=== PATIENT | female | born 1985 | race Caucasian/White ===

== ENCOUNTER → 2019-12-10 13:32 | Outpatient (BNVA) | payer SELFPAY | PROVIDERS: Family Provider Family Medicine; PCP Family Medicine; Visit Provider Nurse Practitioner Family | DX: O20.9 Hemorrhage in early pregnancy, unspecified (principal) | CPT/HCPCS: 81025; 84702 ==

== ENCOUNTER → 2019-12-14 08:42 | Outpatient (BNVA) | payer SELFPAY | PROVIDERS: Family Provider Family Medicine; PCP Family Medicine; Visit Provider Obstetrics & Gynecology | DX: O20.0 Threatened abortion (principal) | CPT/HCPCS: 84702 ==

== ENCOUNTER 2019-12-19 23:15 | Emergency (ER) | payer SELFPAY ==
[2019-12-19 23:16] VITALS: BP 124/84; PULSE 93; RESP 18; O2SAT 98; BMI 25.0
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
--- NOTE | 2019-12-19 23:18 | ED_ITS ---
HPI - Abdominal Pain General: Chief Complaint: Abdominal Pain Stated Complaint: ABDOMINAL CRAMPING 7 WKS Time Seen by Provider: 12/19/19 23:18 History of Present Illness: HPI narrative: Patient comes in today with complaints of lower abdominal pain. Patient is approximately 7 weeks states her last period was 27 October. Patient denies any vaginal discharge or bleeding. Patient appears well. Patient has had 3 previous pregnancies with live births. Review of Systems General: Reports: 10 or more systems reviewed and unremarkable except in HPI and below GI: Reports: abdominal pain PFSH ED PFSH: Social History (Updated 12/10/19 @ 13:26 by Gretchen Padron LPN) Smoking and tobacco status: current every day smoker Alcohol intake: never Physical Exam Const: COMMON NORMALS: no acute distress and patient oriented x3 GENERAL APPEARANCE: cooperative HENMT: COMMON NORMALS: normocephalic, TM's normal bilaterally and Normal ex ternal nose present HEAD & SCALP: normal to inspection and normocephalic NOSE: Normal external nose present TYMPANIC MEMBRANE: TM's normal bilaterally MOUTH: Normal oral and palatal mucosa present THROAT: posterior oropharynx normal Eye: GENERAL EYE: appearance normal, both eyes and all related structures Neck/C-Spine: COMMON NORMALS: full ROM Lymph: LYMPHATIC: no lymphadenopathy noted Chest: COMMONS NORMALS: normal inspection of the chest Resp: COMMON NORMALS: normal respiratory effort EFFORT & INSPECTION: Yes able to speak in complete sentences Cardio: COMMON NORMALS: regular rate and regular rhythm RATE: regular rate RHYTHM: regular rhythm GI: COMMON NORMALS: non-tender : COMMON NORMALS: Yes no CVA tenderness BLADDER/KIDNEY EXAM: Yes no CVA tenderness Back/Pelvis: COMMON NORMALS: no CVA tenderness and thoracic and lumbar spine normal to inspection Extremity: COMMON NORMALS: normal to inspection Neuro: COMMON NORMALS: patient oriented x3 and moves all extremities Psych: COMMON NORMALS: mental status grossly normal and cooperative Skin: COMMON NORMALS: no rashes or lesions noted GENERAL SKIN EXAM: no rashes or lesions noted Course Vital Signs: Vital signs: Vital Signs Pulse Rate 93 12/19/19 23:16 Respiratory Rate 18 12/19/19 23:16 Blood Pressure 124/95 12/20/19 01:10 Pulse Oximetry 99 12/20/19 01:10 MDM - Abdominal Pain MDM Narrative: Medical decision making narrative: Patient comes in today for complaints of some lower abdominal pain. Patient is about 5 to 6 weeks and states that she was just concerned due to her . Patient appears well. Patient appears in no acute distress. Patient denies any vaginal leakage or discharge. Differential diagnosis includes urinary tract infection, threatened miscarriage, ectopic . Ultrasound of the pelvis noted a intrauterine . Laboratory values were normal except for some mild decrease in potassium. Urinalysis was clear. Reviewed exam with patient with recommendations for treatment and follow-up. Patient reported understanding agreed to plan. Lab Data: Labs: Lab Results 12/19/19 12/19/19 12/19/19 Range/Units 23:30 23:30 23:30 WBC 9.9 (4.0-10.0) 10^3/ uL RBC 3.96 L (4.1-5.3) 10^6/u L Hgb 12.5 (11.5-15.3) g/dL Hct 37.1 (37.0-47.0) % MCV 93.7 (81-99) fL MCH 31.6 (28.0-34.0) pg MCHC 33.7 (30.0-36.0) g/dL RDW 12.0 L (12.1-15.1) % Plt Count 254 (130-400) 10^3/c mm MPV 10.8 H (7.4-10.4) fL Neut % (Auto) 51.4 % Lymph % (Auto) 36.3 % [place] % (Auto) 8.6 % Eos % (Auto) 2.8 % Baso % (Auto) 0.7 % Neut # (Auto) 5.1 (1.8-7.7) 10^3/u L Lymph # (Auto) 3.6 (0.8-4.8) 10^3/u L [place] # (Auto) 0.9 (0.2-0.9) 10^3/u L Eos # (Auto) 0.3 (0.0-0.8) 10^3/u L Baso # (Auto) 0.1 (0.0-0.1) 10^3/u L Nucleated RBC % (a uto) 0 % Nucleated RBCs # 0.0 /100WBC Sodium 139 (136-145) mmol/L Potassium 3.2 L (3.5-5.1) mmol/L Chloride 103 (98-107) mmol/L Carbon Dioxide 24 (22-29) mmol/L Anion Gap 15.2 (5-19) BUN 5 L (6-20) mg/dL Creatinine 0.6 (0.5-0.9) mg/dL GFR Calculation 113.8 (90-130) mL/min Glucose 104 (65-115) mg/dL Calculated Osmolal ity 284 L (285-295) mOsm/k g Calcium 9.4 (8.5-10.5) mg/dL Total Bilirubin 0.2 (0.15-1.2) mg/dL AST 16 (0-32) U/L ALT 8 (0-33) U/L Alkaline Phosphata se 81 (35-105) IU/L Total Protein 6.6 (6.6-8.7) g/dL Albumin 4.3 (3.5-5.2) g/dL Globulin 2.3 (1.3-4.6) g/dL Ser , Sanjay i-Qnt 5.80 mIU/mL Urine Color (Yellow) Urine Appearance (CLEAR) Urine pH (5-7) Ur Specific Gravit y (1.005-1.030) Urine Protein (Negative) Urine Glucose (UA) (Normal) Urine Ketones (Negative) Urine Blood (Negative) Urine Nitrate (Negative) Urine Bilirubin (NEGATIVE) Urine Urobilinogen (Negative) mg/dL Ur Leukocyte Myrtle ase (Negative) Blood Type O Positive Rho(D) Type Positive 12/20/19 Range/Units 00:24 WBC (4.0-10.0) 10^3/ uL RBC (4.1-5.3) 10^6/u L Hgb (11.5-15.3) g/dL Hct (37.0-47.0) % MCV (81-99) fL MCH (28.0-34.0) pg MCHC (30.0-36.0) g/dL RDW (12.1-15.1) % Plt Count (130-400) 10^3/c mm MPV (7.4-10.4) fL Neut % (Auto) % Lymph % (Auto) % [place] % (Auto) % Eos % (Auto) % Baso % (Auto) % Neut # (Auto) (1.8-7.7) 10^3/u L Lymph # (Auto) (0.8-4.8) 10^3/u L [place] # (Auto) (0.2-0.9) 10^3/u L Eos # (Auto) (0.0-0.8) 10^3/u L Baso # (Auto) (0.0-0.1) 10^3/u L Nucleated RBC % (a uto) % Nucleated RBCs # /100WBC Sodium (136-145) mmol/L Potassium (3.5-5.1) mmol/L Chloride (98-107) mmol/L Carbon Dioxide (22-29) mmol/L Anion Gap (5-19) BUN (6-20) mg/dL Creatinine (0.5-0.9) mg/dL GFR Calculation (90-130) mL/min Glucose (65-115) mg/dL Calculated Osmolal ity (285-295) mOsm/k g Calcium (8.5-10.5) mg/dL Total Bilirubin (0.15-1.2) mg/dL AST (0-32) U/L ALT (0-33) U/L Alkaline Phosphata se (35-105) IU/L Total Protein (6.6-8.7) g/dL Albumin (3.5-5.2) g/dL Globulin (1.3-4.6) g/dL Ser , Sanjay i-Qnt mIU/mL Urine Color Yellow (Yellow) Urine Appearance Clear (CLEAR) Urine pH 6.5 (5-7) Ur Specific Gravit y 1.010 (1.005-1.030) Urine Protein Neg (Negative) Urine Glucose (UA) Norm (Normal) Urine Ketones Negative (Negative) Urine Blood Neg (Negative) Urine Nitrate Negative (Negative) Urine Bilirubin Neg (NEGATIVE) Urine Urobilinogen Norm (Negative) mg/dL Ur Leukocyte Myrtle ase Negative (Negative) Blood Type Rho(D) Type Discharge Plan Discharge Patient Disposition: Home, Self-Care Clinical Impression: Normal in first trimester Abdominal pain Qualifiers: Abdominal location: periumbilical Qualified Code(s): R10.33 - Periumbilical pain Condition: Stable Prescriptions: No Action No Known Home Medications RF: 0 Discharge Orders: Discharge Order (Routine); Ordered 12/20/19 Ordered By: Demond Cooper Referrals: Eliecer Belle MD [Primary Care Provider] - Discharge Diet: Usual diet Discharge Activity: Increase activity as tolerated Patient Instructions: Abdominal Pain (ED) Activity Restrictions/Additional Instructions: Drink plenty of fluids. Acetaminophen as needed for pain. Return to the ER for high fever, worsening symptoms, or new concerns. Follow-up with primary care and [facility] for further treatment as needed. Coding Level of Care Code ED Telecommunications Analyst for Chg Fwd Exam Comprehensive
--- NOTE | 2019-12-19 23:45 | PC.NURSE ---
Patient does not want any meds or IV. Just wants to make sure that her baby is Okay.
[2019-12-20 00:07] LABS: Basophils # 0.1 10^3/uL (0.0-0.1); Basophils % 0.7 %; Eosinophils # 0.3 10^3/uL (0.0-0.8); Eosinophils % 2.8 %; Hematocrit 37.1 % (37.0-47.0); Hemoglobin 12.5 g/dL (11.5-15.3); Lymphocytes # 3.6 10^3/uL (0.8-4.8); Lymphocytes % 36.3 %; Mean Corpuscular HGB Conc 33.7 g/dL (30.0-36.0); Mean Corpuscular Hemoglobin 31.6 pg (28.0-34.0); Mean Corpuscular Volume 93.7 fL (81-99); Mean Platelet Volume 10.8 fL (7.4-10.4); Monocytes # 0.9 10^3/uL (0.2-0.9); Monocytes % 8.6 %; Neutrophils # 5.1 10^3/uL (1.8-7.7); Neutrophils % 51.4 %; Nucleated Red Blood Cells % 0 %; Platelet Count 254 10^3/cmm (130-400); Red Blood Count 3.96 10^6/uL (4.1-5.3); White Blood Count 9.9 10^3/uL (4.0-10.0)
[2019-12-20 00:32] LABS: Alanine Aminotransferase 8 U/L (0-33); Albumin Level 4.3 g/dL (3.5-5.2); Alkaline Phosphatase 81 IU/L (35-105); Anion Gap 15.2 (5-19); Aspartate Amino Transferase 16 U/L (0-32); Blood Urea Nitrogen 5 mg/dL (6-20); Calcium 9.4 mg/dL (8.5-10.5); Carbon Dioxide 24 mmol/L (22-29); Chloride 103 mmol/L (98-107); Globulin 2.3 g/dL (1.3-4.6); Glomerular Filtration Rate 113.8 mL/min (90-130); Glucose 104 mg/dL (65-115); Osmolality Calculated 284 mOsm/kg (285-295); Potassium 3.2 mmol/L (3.5-5.1); Sodium 139 mmol/L (136-145); Total Bilirubin 0.2 mg/dL (0.15-1.2); Total Protein 6.6 g/dL (6.6-8.7)
[2019-12-20 01:06] VITALS: BP 124/95; O2SAT 99
[2019-12-20 01:10] VITALS: BP 124/95; O2SAT 99
[2019-12-20 01:14] LABS: Add Urine Microscopic? NO
[2019-12-20 01:18] LABS: Urine Appearance Clear (CLEAR); Urine Color Yellow (Yellow); pH Urine 6.5 (5-7)
[2019-12-20 01:19] LABS: Bilirubin Urine Neg (NEGATIVE); Blood Urine Neg (Negative); Glucose Urine UA Norm (Normal); Ketones Urine Negative (Negative); Leukocyte Esterase Urine Negative (Negative); Nitrate Urine Negative (Negative); Protein Urine Neg (Negative); Urobilinogen Urine Norm (Negative)
== END 2019-12-20 01:27 | disposition home or self-care (01) ==
PROVIDERS: Emergency Provider Nurse Practitioner Family; Family Provider Family Medicine; PCP Family Medicine
DX: O26.891 Other specified pregnancy related conditions, first trimester (principal); R10.33 Periumbilical pain; Z3A.01 Less than 8 weeks gestation of pregnancy; O99.331 Smoking (tobacco) complicating pregnancy, first trimester; F17.210 Nicotine dependence, cigarettes, uncomplicated
CPT/HCPCS: 12345; 76801; 80053; 81003; 84702; 85025; 86900; 99282; 99283

== ENCOUNTER → 2019-12-22 09:39 | Outpatient (BNVA) | payer MEDICAID, SELFPAY | PROVIDERS: Family Provider Family Medicine; PCP Family Medicine; Visit Provider Obstetrics & Gynecology | DX: O03.9 Complete or unspecified spontaneous abortion without complication (principal) | CPT/HCPCS: 84702 ==

== ENCOUNTER 2019-12-28 08:15 | Outpatient (CLI) | payer MEDICAID, SELFPAY ==
--- NOTE | 2019-12-28 08:45 | US_ITS ---
WS: [id number] US OB transvaginal [id number] REASON FOR EXAM: Dropping HCG, suppected miscarriage FINDINGS: Today's exam shows no evidence of intrauterine this was on previous exam of 2027 was noted. There are cystic appearing changes in the left ovary and right ovaries. There is a trace of fluid in the cul-de-sac but no hemorrhagic changes. The cervix measured 3.02 cm was closed. US/US OB transvaginal [id number] IMPRESSION: No evidence of intrauterine Benign appearing cysts of both ovaries.
== END 2019-12-28 08:16 | disposition home or self-care (01) ==
LOC: RAD 08:18
PROVIDERS: PCP Family Medicine; Visit Provider Obstetrics & Gynecology
DX: O20.0 Threatened abortion (principal); N83.202 Unspecified ovarian cyst, left side; N83.201 Unspecified ovarian cyst, right side
CPT/HCPCS: 76817

== ENCOUNTER 2020-08-08 23:57 | Emergency (ER) | payer MEDICAID, SELFPAY ==
[2020-08-09 00:02] VITALS: BP 113/79; PULSE 94; RESP 18; TEMP 36.7; O2SAT 99; BMI 25.7
--- NOTE | 2020-08-09 01:06 | ED_ITS ---
HPI - Abdominal Pain General: Chief Complaint: Abdominal Pain Stated Complaint: back and ab pain Time Seen by Provider: 08/09/20 00:00 Source: patient Mode of arrival: ambulatory Limitations: no limitations History of Present Illness: HPI narrative: 35-year-old female who states she believes she may be . She states her last period was in May and she is had positive test last 2 weeks. She states she had some cramping in her low back or lower abdomen and wants to make sure if she is by ultrasound. She denies any vaginal bleeding or discharge. She rates her pain a 5 and is crampy in nature. She denies any worsening improving factors. She denies any vomiting. Associated Symptoms: Denies chills, dysuria and fever(s) Related Data: Date of Last Menstrual Period: 06/17/20 Review of Systems Const: Denies: fever(s), chills, body aches or change in appetite Eyes: Denies: blurry vision or eye discomfort ENMT: Denies: throat pain or dental pain Card: Denies: chest pain Resp: Denies: dyspnea GI: Reports: abdominal pain : Denies: dysuria Musc: Reports: back pain Skin/Breast: Denies: rash Neuro: Denies: headache(s) Psych: Denies: depression Amilcar/Lymph: Denies: easy bruising All/Imm: Denies: urticaria PFSH ED PFSH: Social History Smoking and tobacco status: current every day smoker Alcohol intake: never Female Reproductive History: Date of last menstrual period: 06/17/20 Physical Exam Const: COMMON NORMALS: no acute distress, patient oriented x3 and healthy appearing HENMT: COMMON NORMALS: normocephalic and atraumatic HEAD & SCALP: normocephalic and atraumatic Eye: COMMON NORMALS: Equal, round and reactive pupils present and EOMs intact bilaterally PUPIL: Yes Equal, round and reactive pupils present Neck/C-Spine: COMMON NORMALS: full ROM and supple Chest: COMMONS NORMALS: normal inspection of the chest and normal palpation of entire chest wall Resp: COMMON NORMALS: normal respiratory effort, No retractions, No use of accessory muscles and clear to auscultation bilaterally AUSCULTATION: clear to auscultation bilaterally Cardio: COMMON NORMALS: regular rate, regular rhythm and No murmurs present (Cardio) RATE: regular rate RHYTHM: regular rhythm GI: COMMON NORMALS: Normal to inspection, nondistended, normoactive bowel sounds present, Soft to palpation, non-tender and no masses PALPATION: Yes Soft to palpation Extremity: COMMON NORMALS: normal to inspection and full ROM Neuro: COMMON NORMALS: patient oriented x3, moves all extremities and no focal motor deficits Psych: COMMON NORMALS: mental status grossly normal, Normal thought process present and cooperative THOUGHT PROCESS: Normal thought process present Skin: COMMON NORMALS: no rashes or lesions noted and no wounds GENERAL SKIN EXAM: no rashes or lesions noted Course Vital Signs: Vital signs: Vital Signs Temperature 98.1 F 08/09/20 00:02 Pulse Rate 94 08/09/20 00:02 Respiratory Rate 18 08/09/20 00:02 Blood Pressure 113/79 08/09/20 00:02 Pulse Oximetry 99 08/09/20 00:02 MDM - Abdominal Pain MDM Narrative: Medical decision making narrative: Patient presents here with abdominal pain affecting . Her exam here is benign blood work is all normal. Patient's ultrasound here shows a subchronic hemorrhage along with an IUP at 5 weeks with a heart rate. She is stable for discharge and is to follow-up with OB and return if worsening. Lab Data: Labs: Lab Results 08/09/20 08/09/20 08/09/20 Range/Units 01:15 01:15 01:20 WBC 9.6 (4.0-10.0) 10^3/ uL RBC 4.47 (4.1-5.3) 10^6/u L Hgb 11.7 (11.5-15.3) g/dL Hct 37.1 (37.0-47.0) % MCV 83.0 (81-99) fL MCH 26.2 L (28.0-34.0) pg MCHC 31.5 (30.0-36.0) g/dL RDW 16.8 H (12.1-15.1) % Plt Count 296 (130-400) 10^3/c mm MPV 10.2 (7.4-10.4) fL Neut % (Auto) 47.6 % Lymph % (Auto) 41.5 % [place] % (Auto) 7.9 % Eos % (Auto) 2.2 % Baso % (Auto) 0.4 % Neut # (Auto) 4.56 (1.8-7.7) 10^3/u L Lymph # (Auto) 4.0 (0.8-4.8) 10^3/u L [place] # (Auto) 0.8 (0.2-0.9) 10^3/u L Eos # (Auto) 0.2 (0.0-0.8) 10^3/u L Baso # (Auto) 0.0 (0.0-0.1) 10^3/u L Nucleated RBC % (a uto) 0 % Nucleated RBCs # 0.0 /100WBC Sodium (136-145) mmol/L Potassium (3.5-5.1) mmol/L Chloride (98-107) mmol/L Carbon Dioxide (22-29) mmol/L Anion Gap (5-19) BUN (6-20) mg/dL Creatinine (0.5-0.9) mg/dL GFR Calculation (90-130) mL/min Glucose (65-115) mg/dL Calculated Osmolal ity (285-295) mOsm/k g Calcium (8.5-10.5) mg/dL Total Bilirubin (0.15-1.2) mg/dL AST (0-32) U/L ALT (0-33) U/L Alkaline Phosphata se (35-105) IU/L Total Protein (6.6-8.7) g/dL Albumin (3.5-5.2) g/dL Globulin (1.3-4.6) g/dL Lipase (13-60) U/L HCG, Qual Positive H (Negative) Ser , Sanjay i-Qnt mIU/mL Urine Color Yellow (Yellow) Urine Appearance Clear (CLEAR) Urine pH 6.0 (5-7) Ur Specific Gravit y 1.010 (1.005-1.030) Urine Protein Neg (Negative) Urine Glucose (UA) Norm (Normal) Urine Ketones Negative (Negative) Urine Blood Neg (Negative) Urine Nitrate Negative (Negative) Urine Bilirubin Neg (Negative) Urine Urobilinogen Norm (Negative) mg/dL Ur Leukocyte Myrtle ase Negative (Negative) 01/12/21 01/12/21 Range/Units 01:20 01:20 WBC (4.0-10.0) 10^3/ uL RBC (4.1-5.3) 10^6/u L Hgb (11.5-15.3) g/dL Hct (37.0-47.0) % MCV (81-99) fL MCH (28.0-34.0) pg MCHC (30.0-36.0) g/dL RDW (12.1-15.1) % Plt Count (130-400) 10^3/c mm MPV (7.4-10.4) fL Neut % (Auto) % Lymph % (Auto) % [place] % (Auto) % Eos % (Auto) % Baso % (Auto) % Neut # (Auto) (1.8-7.7) 10^3/u L Lymph # (Auto) (0.8-4.8) 10^3/u L [place] # (Auto) (0.2-0.9) 10^3/u L Eos # (Auto) (0.0-0.8) 10^3/u L Baso # (Auto) (0.0-0.1) 10^3/u L Nucleated RBC % (a uto) % Nucleated RBCs # /100WBC Sodium 137 (136-145) mmol/L Potassium 3.7 (3.5-5.1) mmol/L Chloride 101 (98-107) mmol/L Carbon Dioxide 25 (22-29) mmol/L Anion Gap 14.7 (5-19) BUN 4 L (6-20) mg/dL Creatinine 0.6 (0.5-0.9) mg/dL GFR Calculation 113.1 (90-130) mL/min Glucose 104 (65-115) mg/dL Calculated Osmolal ity 281 L (285-295) mOsm/k g Calcium 10.0 (8.5-10.5) mg/dL Total Bilirubin 0.2 (0.15-1.2) mg/dL AST 15 (0-32) U/L ALT 9 (0-33) U/L Alkaline Phosphata se 85 (35-105) IU/L Total Protein 7.1 (6.6-8.7) g/dL Albumin 4.5 (3.5-5.2) g/dL Globulin 2.6 (1.3-4.6) g/dL Lipase 31 (13-60) U/L HCG, Qual (Negative) Ser , Sanjay i-Qnt 89271.00 mIU/mL Urine Color (Yellow) Urine Appearance (CLEAR) Urine pH (5-7) Ur Specific Gravit y (1.005-1.030) Urine Protein (Negative) Urine Glucose (UA) (Normal) Urine Ketones (Negative) Urine Blood (Negative) Urine Nitrate (Negative) Urine Bilirubin (Negative) Urine Urobilinogen (Negative) mg/dL Ur Leukocyte Myrtle ase (Negative) Discharge Plan Discharge Patient Disposition: Home Clinical Impression: Abdominal pain affecting Condition: Stable Prescriptions: No Action penicillin V potassium 500 mg tablet 500 mg PO TID Qty: 30 RF: 0 ondansetron HCl [Zofran] 4 mg tablet 4 mg PO Q8H PRN (Reason: nausea and vomiting) Qty: 20 RF: 0 Discharge Orders: Discharge ED (Routine); Ordered 08/09/20 Ordered By: Soraya Bolivar Referrals: Eliecer Belle MD [Primary Care Provider] - Discharge Diet: Advance as tolerated Discharge Activity: Resume usual activity Patient Instructions: (ED), Abdominal Pain (ED) Stand Alone Forms: Work/School Release Coding Level of Care Code ED Material Coordinator for Chg Fwd Exam Comprehensive
[2020-08-09 01:23] LABS: HCG Qualitative Urine. Positive (Negative)
[2020-08-09 01:25] LABS: Basophils % 0.4 %; Eosinophils # 0.2 10^3/uL (0.0-0.8); Eosinophils % 2.2 %; Hematocrit 37.1 % (37.0-47.0); Hemoglobin 11.7 g/dL (11.5-15.3); Lymphocytes % 41.5 %; Mean Corpuscular HGB Conc 31.5 g/dL (30.0-36.0); Mean Corpuscular Hemoglobin 26.2 pg (28.0-34.0); Mean Platelet Volume 10.2 fL (7.4-10.4); Monocytes # 0.8 10^3/uL (0.2-0.9); Monocytes % 7.9 %; Neutrophils # 4.56 10^3/uL (1.8-7.7); Neutrophils % 47.6 %; Nucleated Red Blood Cells % 0 %; Platelet Count 296 10^3/cmm (130-400); Red Blood Count 4.47 10^6/uL (4.1-5.3); Red Cell Distribution Width 16.8 % (12.1-15.1); White Blood Count 9.6 10^3/uL (4.0-10.0)
[2020-08-09 01:38] LABS: Add Urine Microscopic? NO; Bilirubin Urine Neg (Negative); Blood Urine Neg (Negative); Glucose Urine UA Norm (Normal); Ketones Urine Negative (Negative); Leukocyte Esterase Urine Negative (Negative); Nitrate Urine Negative (Negative); Protein Urine Neg (Negative); Urine Appearance Clear (CLEAR); Urine Color Yellow (Yellow); Urobilinogen Urine Norm (Negative)
--- NOTE | 2020-08-09 01:38 | US_ITS ---
WS: [id number] ULTRASOUND EARLY TECHNIQUE: Transabdominal sonography of the pelvis was performed. Followed by transvaginal sonography to better evaluate the uterus and ovaries. CLINICAL INFORMATION: abd pain LMP: 06/28/2020 Beta hCG: Unknown. COMPARISON: None. FINDINGS: UTERUS AND GESTATIONAL SAC Intrauterine gestations: Estimated gestational age: 6w0d Yolk sac: 0.4 cm. [place] rump length (CRL): 0.2 cm. heart motion: 122 BPM. Subchorionic hemorrhage: Present measuring 4.3 x 2.6 cm OVARIES Right ovary: Normal. Left ovary: Incidental small left ovarian cysts. FREE FLUID None. US/US OB >=14 wk fetus w transvag IMPRESSION: 1. Single live intrauterine with prominent subchorionic hemorrhage m easuring 4.3 x 2.6 cm. Recommend short interval follow-up 2. Estimated gestational age; 6w0d. Estimated delivery April 04, 2021 3. No free fluid in the cul-de-sac. 4. Normal adnexa.
[2020-08-09 01:59] LABS: Alanine Aminotransferase 9 U/L (0-33); Albumin Level 4.5 g/dL (3.5-5.2); Alkaline Phosphatase 85 IU/L (35-105); Anion Gap 14.7 (5-19); Aspartate Amino Transferase 15 U/L (0-32); Blood Urea Nitrogen 4 mg/dL (6-20); Carbon Dioxide 25 mmol/L (22-29); Chloride 101 mmol/L (98-107); Globulin 2.6 g/dL (1.3-4.6); Glomerular Filtration Rate 113.1 mL/min (90-130); Glucose 104 mg/dL (65-115); Lipase 31 U/L (13-60); Osmolality Calculated 281 mOsm/kg (285-295); Potassium 3.7 mmol/L (3.5-5.1); Sodium 137 mmol/L (136-145); Total Bilirubin 0.2 mg/dL (0.15-1.2); Total Protein 7.1 g/dL (6.6-8.7)
[2020-08-09 03:00] VITALS: BP 123/78; PULSE 78; RESP 16; O2SAT 98
== END 2020-08-09 03:01 | disposition home or self-care (01) ==
PROVIDERS: Emergency Provider Emergency Medicine; PCP Family Medicine
DX: O26.891 Other specified pregnancy related conditions, first trimester (principal); R10.9 Unspecified abdominal pain; O99.331 Smoking (tobacco) complicating pregnancy, first trimester; F17.210 Nicotine dependence, cigarettes, uncomplicated; Z3A.01 Less than 8 weeks gestation of pregnancy
CPT/HCPCS: 12345; 76805; 76817; 80053; 81003; 81025; 83690; 84702; 85025; 99283

== ENCOUNTER → 2020-08-23 10:54 | Outpatient (BNVA) | payer BC, SELFPAY | PROVIDERS: PCP Family Medicine; Visit Provider Nurse Practitioner Women's Health | DX: O09.521 Supervision of elderly multigravida, first trimester (principal) | CPT/HCPCS: 81000 ==

== ENCOUNTER → 2020-09-22 14:07 | Outpatient (BNVA) | payer BC, MEDICAID, SELFPAY | PROVIDERS: PCP Family Medicine; Visit Provider Obstetrics & Gynecology | DX: O09.521 Supervision of elderly multigravida, first trimester (principal); Z11.3 Encounter for screening for infections with a predominantly sexual mode of transmission; Z3A.00 Weeks of gestation of pregnancy not specified | CPT/HCPCS: 80307; 81000; 85027; 86592; 86762; 86803; 86850; 86900; 87086; 87340; 87491; 87591; 87806 ==

== ENCOUNTER → 2020-11-21 12:45 | Outpatient (BNVA) | payer BC, MEDICAID, SELFPAY | PROVIDERS: PCP Family Medicine; Visit Provider Obstetrics & Gynecology | DX: Z36.89 Encounter for other specified antenatal screening (principal); Z3A.20 20 weeks gestation of pregnancy | CPT/HCPCS: 76805 ==

== ENCOUNTER → 2020-12-01 13:27 | Outpatient (BNVA) | payer BC, MEDICAID, SELFPAY | PROVIDERS: PCP Family Medicine; Visit Provider Obstetrics & Gynecology | DX: Z34.90 Encounter for supervision of normal pregnancy, unspecified, unspecified trimester (principal) | CPT/HCPCS: 81000 ==

== ENCOUNTER 2020-12-16 22:29 | Outpatient (CLI) | payer BC, MEDICAID, SELFPAY ==
[2020-12-16 22:36] VITALS: BP 120/76; PULSE 96
[2020-12-16 22:47] VITALS: BP 119/77; PULSE 93
== END 2020-12-16 22:58 | disposition home or self-care (01) ==
LOC: OPOB 22:30 → OBGYN 22:31
PROVIDERS: PCP Family Medicine; Visit Provider Obstetrics & Gynecology
DX: O26.899 Other specified pregnancy related conditions, unspecified trimester (principal); Z3A.00 Weeks of gestation of pregnancy not specified; M25.472 Effusion, left ankle; M25.471 Effusion, right ankle
CPT/HCPCS: 99211

== ENCOUNTER → 2020-12-22 12:20 | Outpatient (BNVA) | payer BC, MEDICAID, SELFPAY | PROVIDERS: PCP Family Medicine; Visit Provider Obstetrics & Gynecology | DX: Z34.80 Encounter for supervision of other normal pregnancy, unspecified trimester (principal) | CPT/HCPCS: 81000 ==

== ENCOUNTER 2021-01-12 22:11 | Emergency (ER) | payer BC, MEDICAID, SELFPAY ==
--- NOTE | 2021-01-12 22:15 | USCV_ITS ---
KailaJosue nazario Age: 35 Gender: F : 1985 Exam Date: 01/12/2021 23:08 Ordering Phys: Soraya Bolivar MD Technologist: Edgar Ruiz Exam Location: [facility] – [place] Indication: LT LEG SWELLING 8 MONTHS PREG HISTORY: Lower extremity swelling. PROCEDURES: Venous duplex imaging was performed in bilateral lower extremities. The venous duplex Doppler examination of both lower extremities was performed in the standard fashion. The following venous structures were evaluated: common femoral vein, profunda vein, proximal portion of the greater saphenous vein, superficial femoral vein, and the popliteal vein. FINDINGS: Normal 2-D Doppler and augmentation and compressibility throughout the lower extremity venous structures. Additional imaging through the proximal calf veins also reveals no thrombus. Limited evaluation of the greater saphenous vein is patent with no thrombus.. CONCLUSIONS No evidence of right lower extremity DVT. No evidence of left lower extremity DVT. Aldo Oneil MD (Electronically Signed) Final Date: 13 January 2021 13:27 S
[2021-01-12 22:22] VITALS: BP 128/84; PULSE 95; RESP 18; TEMP 36.6; O2SAT 97; BMI 29.1
[2021-01-12 23:23] VITALS: BP 131/92; PULSE 96; RESP 18; O2SAT 98
[2021-01-12 23:24] VITALS: PULSE 96
--- NOTE | 2021-01-12 23:28 | W.ED.EXTPRO ---
HPI - Extremity Problem General: Chief complaint: Extremity Problem,Nontraumatic Stated complaint: Ankles and legs swollen Time Seen by Provider: 01/12/21 22:21 History of Present Illness: HPI Narrative: 35-year-old female comes in today for complaints of lower extremity swelling. Patient is 7 months . Patient today had some increased swelling in the lower extremities although it has been having problems with swelling for the last month. She had some increased pain in her left lower leg and was concerned for a blood clot in the leg. Patient appears well. Patient appears in mild to no pain. No significant redness or pulse deficit is noted in the lower extremity. MD Complaint: extremity pain and extremity swelling Onset (ago): hour(s) (Worse today) Pain Consistency: intermittent Location: lower extremity Quality: aching Relieving factors: medication Exacerbating factors: nothing Associated symptoms: Reports no associated symptoms Review of Systems General: Reports: 10 or more systems reviewed and unremarkable except in HPI and below Musc: Reports: other (Swelling to bilateral lower extremities, worse to the left with pain) PFSH ED PFSH: Medical History No pertinent past medical history neghx: htn,dm,thyroid,dvt/pe,herpes Denies past partner hx of herpes PCP: none Surgical History History of appendectomy ~age 16 S/P laparoscopic cholecystectomy Family History Grandmother , unknown what type and how old at dx Cancer Denies family history of Diabetes Hypertension Stroke Social History (Updated 12/23/20 @ 10:18 by Derek Hernandez MD) Smoking and tobacco status: current every day smoker cigarettes Packs smoked per day: 0.5 [ Other cigarette details: Most 1/2 ppd. Started age 15. ] Alcohol intake: never Female Reproductive History: Date of last menstrual period: 06/17/20 Physical Exam Const: COMMON NORMALS: no acute distress and patient oriented x3 GENERAL APPEARANCE: cooperative HENMT: COMMON NORMALS: normocephalic and Normal external nose present HEAD & SCALP: normal to inspection and normocephalic NOSE: Normal external nose present Eye: GENERAL EYE: appearance normal, both eyes and all related structures Neck/C-Spine: COMMON NORMALS: full ROM Chest: COMMONS NORMALS: normal inspection of the chest Resp: COMMON NORMALS: normal respiratory effort EFFORT & INSPECTION: Yes able to speak in complete sentences Cardio: COMMON NORMALS: regular rate and regular rhythm RATE: regular rate RHYTHM: regular rhythm GI: COMMON NORMALS: non-tender : COMMON NORMALS: Yes no CVA tenderness BLADDER/KIDNEY EXAM: Yes no CVA tenderness Back/Pelvis: COMMON NORMALS: no CVA tenderness and thoracic and lumbar spine normal to inspection Extremity: NARRATIVE EXTREMITY EXAM: Bilateral lower extremity swelling, increased more on the left, no redness, pulses are intact. Neuro: COMMON NORMALS: patient oriented x3 and moves all extremities Psych: COMMON NORMALS: mental status grossly normal and cooperative Skin: COMMON NORMALS: no rashes or lesions noted GENERAL SKIN EXAM: no rashes or lesions noted Course Vital Signs: Vital signs: Vital Signs Temperature 97.9 F 01/12/21 22:22 Pulse Rate 96 01/12/21 23:24 Respiratory Rate 18 01/12/21 23:23 Blood Pressure 131/92 01/12/21 23:23 Pulse Oximetry 98 01/12/21 23:23 MDM - Extremity (Nontraumatic) MDM Narrative: Medical decision making narrative: Patient comes in today for complaints of bilateral lower extremity swelling. Patient has had increased swelling to lower extremities for the last month. Patient is at 7 months . Patient does will continue to work and is up on her feet throughout the day. Patient is also a smoker. On exam swelling is noted in bilateral lower extremities +1 to +2, without any redness or calf pain. Differential diagnosis includes but not limited to peripheral vascular disease, edema during , heat edema, DVT. Ultrasound was performed left lower extremity due to increased pain and swelling in that extremity over the right no DVT was noted. Patient's blood pressure was normal. Feel the patient probably has edema during due to the pressure on the great vessels I reviewed this with patient with recommendations for treatment including elevate feet as much as possible. Healthy diet and exercise. And cessation of smoking. Patient reported understanding agreed to plan and to try to stop smoking. Discharge Plan Discharge Patient Disposition: Home Clinical Impression: Edema during Qualifiers: Trimester: third trimester Qualified Code(s): O12.03 - Gestational edema, third trimester Condition: Stable Prescriptions: No Action guaifenesin 100 mg/5 mL liquid 200 mg PO .nightly PRNRF: 0 cetirizine [Zyrtec] 10 mg tablet 10 mg PO DAILY PRNRF: 0 hydrocodone-acetaminophen 7.5-300 mg tablet 1 tab PO ONCE RF: 0 Discharge Orders: Discharge ED (Routine); Ordered 01/12/21 Ordered By: Demond Cooper Discharge Diet: Usual diet Discharge Activity: Increase activity as tolerated Patient Instructions: Opioid Safety Activity Restrictions/Additional Instructions: Home and rest. Elevate feet. Healthy diet and exercise. Stop smoking. Follow-up with [facility] in the morning. Return to the ER for new concerns. Coding Level of Care Code ED Woodenware Assembler for Peter Shirley
== END 2021-01-12 23:36 | disposition home or self-care (01) ==
PROVIDERS: Emergency Provider Nurse Practitioner Family
DX: O12.03 Gestational edema, third trimester (principal); O99.333 Smoking (tobacco) complicating pregnancy, third trimester; F17.210 Nicotine dependence, cigarettes, uncomplicated; Z3A.00 Weeks of gestation of pregnancy not specified
CPT/HCPCS: 93970; 99282

== ENCOUNTER → 2021-01-16 14:04 | Outpatient (BNVA) | payer BC, MEDICAID, SELFPAY | PROVIDERS: Visit Provider Obstetrics & Gynecology | DX: O09.892 Supervision of other high risk pregnancies, second trimester (principal); Z3A.00 Weeks of gestation of pregnancy not specified | CPT/HCPCS: 81000; 82950; 85025; 87086 ==

== ENCOUNTER → 2021-01-17 14:20 | Outpatient (BNVA) | payer BC, MEDICAID, SELFPAY | PROVIDERS: Visit Provider Obstetrics & Gynecology | DX: O99.019 Anemia complicating pregnancy, unspecified trimester (principal); Z3A.00 Weeks of gestation of pregnancy not specified | CPT/HCPCS: 82728; 83550 ==

== ENCOUNTER → 2021-01-24 11:36 | Day surgery (SDC) | payer BC, MEDICAID, SELFPAY ==
[2021-01-24 11:50] VITALS: BP 128/82; PULSE 90; RESP 18; TEMP 36.5; O2SAT 98
[2021-01-24 11:52] VITALS: BMI 29.1
[2021-01-24] MEDS: ferric carboxy (IVPB) 750 MG in sodium chloride 0.9% (100 ml) 100 ML 345 MG IV (12:33)
== END ==
PROVIDERS: PCP Obstetrics & Gynecology; Visit Provider Nurse Practitioner Family
DX: O99.012 Anemia complicating pregnancy, second trimester (principal); Z3A.00 Weeks of gestation of pregnancy not specified
CPT/HCPCS: 96365; J1439

== ENCOUNTER → 2021-01-27 15:32 | Outpatient (BNVA) | payer BC, MEDICAID, SELFPAY | PROVIDERS: PCP Obstetrics & Gynecology; Visit Provider Obstetrics & Gynecology | DX: O09.892 Supervision of other high risk pregnancies, second trimester (principal); Z3A.00 Weeks of gestation of pregnancy not specified | CPT/HCPCS: 81000 ==

== ENCOUNTER → 2021-01-31 08:03 | Day surgery (SDC) | payer BC, MEDICAID, SELFPAY ==
[2021-01-31 08:18] VITALS: BP 114/70; PULSE 97; RESP 18; TEMP 36.8; O2SAT 97; BMI 29.9
[2021-01-31] MEDS: ferric carboxy (IVPB) 750 MG in sodium chloride 0.9% (100 ml) 100 ML 345 MG IV (08:32)
== END ==
PROVIDERS: PCP Obstetrics & Gynecology; Visit Provider Nurse Practitioner Family
DX: Z34.82 Encounter for supervision of other normal pregnancy, second trimester (principal); D50.9 Iron deficiency anemia, unspecified
CPT/HCPCS: 84156; 87086; 96365; J1439

== ENCOUNTER → 2021-02-08 08:15 | Outpatient (BNVA) | payer BC, MEDICAID, SELFPAY | PROVIDERS: PCP Obstetrics & Gynecology; Visit Provider Obstetrics & Gynecology | DX: O09.892 Supervision of other high risk pregnancies, second trimester (principal); Z3A.00 Weeks of gestation of pregnancy not specified | CPT/HCPCS: 81000 ==

== ENCOUNTER 2021-02-18 18:46 | Outpatient (CLI) | payer BC, MEDICAID, SELFPAY ==
[2021-02-18 19:05] VITALS: BP 133/81; PULSE 90
[2021-02-18 19:18] VITALS: BMI 30.6
[2021-02-18 19:35] VITALS: BP 119/81; PULSE 96
[2021-02-18 19:45] VITALS: BP 119/81; PULSE 96; RESP 16
== END 2021-02-18 19:50 | disposition home or self-care (01) ==
LOC: OPOB 18:50 → OBGYN 18:51
PROVIDERS: PCP Obstetrics & Gynecology; Visit Provider Obstetrics & Gynecology
DX: O36.8190 Decreased fetal movements, unspecified trimester, not applicable or unspecified (principal); Z3A.00 Weeks of gestation of pregnancy not specified
CPT/HCPCS: 59025; 83986; 99211

== ENCOUNTER → 2021-02-21 08:27 | Outpatient (BNVA) | payer BC, MEDICAID, SELFPAY | PROVIDERS: PCP Obstetrics & Gynecology; Visit Provider Nurse Practitioner Women's Health | DX: O99.019 Anemia complicating pregnancy, unspecified trimester (principal); D64.9 Anemia, unspecified; Z3A.00 Weeks of gestation of pregnancy not specified | CPT/HCPCS: 81000; 85025 ==

== ENCOUNTER → 2021-03-06 15:28 | Outpatient (BNVA) | payer BC, MEDICAID, SELFPAY | PROVIDERS: PCP Obstetrics & Gynecology; Visit Provider Internal Medicine | DX: O99.019 Anemia complicating pregnancy, unspecified trimester (principal); E61.1 Iron deficiency | CPT/HCPCS: 80053; 83550 ==

== ENCOUNTER 2021-03-09 10:49 | Outpatient (CLI) | payer BC, MEDICAID, SELFPAY ==
[2021-03-09 10:59] VITALS: RESP 18
[2021-03-09 11:00] VITALS: BMI 31.2
[2021-03-09 11:09] VITALS: BP 128/84; PULSE 104; RESP 18; TEMP 36.6
[2021-03-09 11:31] LABS: Add Urine Microscopic? NO; Charge for UA Resulting for Rev
[2021-03-09 11:35] VITALS: BP 115/73; PULSE 96
[2021-03-09 11:36] LABS: Basophils % 0.2 %; Eosinophils # 0.1 10^3/uL (0.0-0.8); Eosinophils % 0.5 %; Hematocrit 32.9 % (37.0-47.0); Hemoglobin 10.9 g/dL (11.5-15.3); Lymphocytes # 1.9 10^3/uL (0.8-4.8); Lymphocytes % 15.1 %; Mean Corpuscular HGB Conc 33.1 g/dL (30.0-36.0); Mean Corpuscular Hemoglobin 32.3 pg (28.0-34.0); Mean Corpuscular Volume 97.6 fL (81-99); Mean Platelet Volume 10.3 fL (7.4-10.4); Monocytes # 0.7 10^3/uL (0.2-0.9); Neutrophils # 9.44 10^3/uL (1.8-7.7); Neutrophils % 77.1 %; Nucleated Red Blood Cells % 0 %; Platelet Count 288 10^3/cmm (130-400); Red Blood Count 3.37 10^6/uL (4.1-5.3); Red Cell Distribution Width 17.6 % (12.1-15.1); White Blood Count 12.2 10^3/uL (4.0-10.0)
[2021-03-09 11:45] LABS: Bilirubin Urine Neg (Negative); Blood Urine Neg (Negative); Glucose Urine UA Norm (Normal); Ketones Urine Negative (Negative); Leukocyte Esterase Urine Negative (Negative); Nitrate Urine Negative (Negative); Protein Urine Neg (Negative); Urine Appearance Clear (CLEAR); Urine Color Yellow (Yellow); Urobilinogen Urine Neg (Negative); pH Urine 7 (5-7)
[2021-03-09 11:50] VITALS: BP 125/75; PULSE 93
[2021-03-09 11:56] LABS: Alanine Aminotransferase < 5 U/L (0-33); Albumin Level 3.5 g/dL (3.5-5.2); Alkaline Phosphatase 134 IU/L (35-105); Anion Gap 12.2 (5-19); Aspartate Amino Transferase 21 U/L (0-32); Carbon Dioxide 25 mmol/L (22-29); Chloride 105 mmol/L (98-107); Globulin 2.7 g/dL (1.3-4.6); Glomerular Filtration Rate 251.7 mL/min (90-130); Glucose 116 mg/dL (65-115); Potassium 3.2 mmol/L (3.5-5.1); Sodium 139 mmol/L (136-145); Total Bilirubin 0.2 mg/dL (0.15-1.2); Total Protein 6.2 g/dL (6.6-8.7); Uric Acid 4.4 mg/dL (2.4-5.7)
[2021-03-09 11:59] LABS: Urine Creatinine 31 mg/dL (28-217); Urine Protein Random 11 mg/dL
[2021-03-09 12:05] VITALS: BP 127/84; PULSE 96
[2021-03-09 12:08] LABS: UPRO/UCREAT Ratio 0.35 mg/mg CR
[2021-03-09 12:16] LABS: Blood Urea Nitrogen 3 mg/dL (6-20); Calcium 8.2 mg/dL (8.5-10.5); Osmolality Calculated 286 mOsm/kg (285-295)
[2021-03-09 12:20] VITALS: BP 130/74; PULSE 90
== END 2021-03-09 12:35 | disposition home or self-care (01) ==
LOC: OPOB 10:53 → OBGYN 10:54
PROVIDERS: PCP Obstetrics & Gynecology; Visit Provider Obstetrics & Gynecology
DX: O16.9 Unspecified maternal hypertension, unspecified trimester (principal); Z3A.00 Weeks of gestation of pregnancy not specified
CPT/HCPCS: 36415; 59025; 80053; 81000; 81003; 82570; 84156; 84550; 85025; 87081; 99211

== ENCOUNTER 2021-03-16 09:28 | Outpatient (CLI) | payer BC, MEDICAID, SELFPAY ==
--- NOTE | 2021-03-16 12:44 | P.ANESASSM_ITS ---
Pre-Anesthetic Assessment Pre-Anesthetic Assessment: Height/Weight: Height 1.65 m Preop Diagnosis: iup Proposed Procedure: epidural Familial anesthetic complications: none Was Beta Reji taken within 24 hours: N/A Was Clonidine taken within 24 hours: N/A Social: Social History: Tobacco and No alcohol Exam: Pre-Anes Outpt Exam: alert, oriented x 3, clear to auscultation bilaterally and regular rate & rhythm Airway: Cervical ROM: WNL MP: 2 Dentition: False and Full CV/HEM: CV/HEM: Anemia Anesthetic Plan: ASA status: 2 Anesthesia: Regional (specify below) (epidural) Risk of > 500 ml blood loss (7ml/kg in children): No PFSH Anesthesia 2 PFSH: Medical History No pertinent past medical history neghx: htn,dm,thyroid,dvt/pe,herpes Denies past partner hx of herpes PCP: none Surgical History History of appendectomy ~age 16 S/P laparoscopic cholecystectomy Family History Grandmother , unknown what type and how old at dx Cancer Denies family history of Diabetes Hypertension Stroke Social History Smoking and tobacco status: current every day smoker Adopted: No Marital status: Legally Number of children: 3 service: No History of recent travel: No Female Reproductive History: Date of last menstrual period: 06/17/20 Data Anesthesia Cardiac Studies: No Data to Display
== END 2021-03-16 09:35 | disposition home or self-care (01) ==
LOC: LAB 05-04 03:18
PROVIDERS: PCP Obstetrics & Gynecology; Visit Provider Obstetrics & Gynecology
DX: O09.892 Supervision of other high risk pregnancies, second trimester (principal)
CPT/HCPCS: 81000

== ENCOUNTER → 2021-03-20 10:38 | Outpatient (BNVA) | payer BC, MEDICAID, SELFPAY | PROVIDERS: PCP Obstetrics & Gynecology; Visit Provider Obstetrics & Gynecology | DX: O09.899 Supervision of other high risk pregnancies, unspecified trimester (principal); Z20.822 Contact with and (suspected) exposure to COVID-19; R05 Cough; Z3A.00 Weeks of gestation of pregnancy not specified | CPT/HCPCS: 81000; 87086; 87635 ==

== ENCOUNTER 2021-03-26 12:30 | Inpatient (IN) | payer BC, MEDICAID, SELFPAY ==
[2021-03-26] VITALS (47 sets, daily range): BP systolic 125–191; BP diastolic 60–97; PULSE 74–134; RESP 18; TEMP 36.7; O2SAT 95–97; BMI 30.9
[2021-03-26 11:26] LABS: Basophils % 0.2 %; Eosinophils # 0.1 10^3/uL (0.0-0.8); Eosinophils % 0.5 %; Hematocrit 34.7 % (37.0-47.0); Hemoglobin 11.7 g/dL (11.5-15.3); Lymphocytes # 2.2 10^3/uL (0.8-4.8); Lymphocytes % 17.3 %; Mean Corpuscular HGB Conc 33.7 g/dL (30.0-36.0); Mean Corpuscular Hemoglobin 32.3 pg (28.0-34.0); Mean Corpuscular Volume 95.9 fl (81-99); Mean Platelet Volume 10.4 fL (7.4-10.4); Monocytes # 0.6 10^3/uL (0.2-0.9); Monocytes % 4.5 %; Neutrophils # 9.85 10^3/uL (1.8-7.7); Nucleated Red Blood Cells % 0 %; Platelet Count 287 10^3/cmm (130-400); Red Blood Count 3.62 10^6/uL (4.1-5.3); Red Cell Distribution Width 17.3 % (12.1-15.1); White Blood Count 12.8 10^3/uL (4.0-10.0)
[2021-03-26 11:31] LABS: Actim Prom Positive
[2021-03-26 11:45] LABS: Alanine Aminotransferase 13 U/L (0-33); Alkaline Phosphatase 199 IU/L (35-105); Anion Gap 15.2 (5-19); Aspartate Amino Transferase 24 U/L (0-32); Blood Urea Nitrogen 4 mg/dL (6-20); Calcium 8.7 mg/dL (8.5-10.5); Carbon Dioxide 21 mmol/L (22-29); Chloride 103 mmol/L (98-107); Glomerular Filtration Rate 180.6 mL/min (90-130); Glucose 75 mg/dL (65-115); Osmolality Calculated 278 mOsm/kg (285-295); Potassium 3.2 mmol/L (3.5-5.1); Sodium 136 mmol/L (136-145); Total Bilirubin 0.3 mg/dL (0.15-1.2); Uric Acid 4.3 mg/dL (2.4-5.7)
[2021-03-26 11:49] LABS: Urine Creatinine 27 mg/dL (28-217)
[2021-03-26 11:50] LABS: Add Urine Microscopic? YES; Bilirubin Urine Neg (Negative); Blood Urine 2+ (Negative); Glucose Urine UA Norm (Normal); Ketones Urine Negative (Negative); Leukocyte Esterase Urine Trace (Negative); Nitrate Urine Negative (Negative); Protein Urine Neg (Negative); Specific Gravity, Urine 1.005 (1.005-1.030); Urine Appearance Clear (CLEAR); Urine Color Straw (Yellow); Urobilinogen Urine Norm (Negative); pH Urine 7 (5-7)
[2021-03-26 11:52] LABS: RBC Urine 0-4 /hpf (0-2)
[2021-03-26 11:53] LABS: Bacteria Urine TRACE /hpf
[2021-03-26 11:54] LABS: Add Urine Culture? No
[2021-03-26 12:04] LABS: UPRO/UCREAT Ratio 0.93 mg/mg CR; Urine Protein Random 25 mg/dL
[2021-03-26] MEDS: acetaminophen 325 mg Tablet 650 MG PO (13:04)
[2021-03-26] MEDS: lactated ringers 1,000 ML 999 ML IV (13:06)
[2021-03-26] MEDS: fentaNYL 50 mcg/mL INJ 2mL IVP (13:17)
--- NOTE | 2021-03-26 13:39 | P.HP_ITS ---
Providers/Chief Complaint Primary Care Provider: Leisa Wray MD Chief Complaint: Contractions HPI TECHNICAL OPERATIONS SPECIALIST History of Present Illness Josue Aguayo is a 35 year old female G5, P3 who is at 38 weeks and 5 days today, who presented with contractions for a few hours prior to presentation. She is also complaining of possible leakage of fluid. On presentation, the nitrazine test was equivocal, however, the active PROM was positive. Of note, her blood pressures were slightly elevated on presentation, therefore, preeclampsia work-up was initiated and came back with elevated protein/creatinine ratio of 0.93. Patient is being admitted for ruptured membranes, as well as preeclampsia without severe features. Patient does have a mild headache, therefore Tylenol was given. She denies having any blurry vision, she denies having any new right upper quadrant pain, she denies having seeing spots in her eyes. She is GBS positive, therefore, penicillin will be initiated. Patient's has been uncomplicated, other than she is a smoker and has continued to smoke throughout her entire . She is also advanced maternal age, however, she was late to care in late for genetic screening. Present Details : 5 Para: 3 Date of Last Menstrual Period: 06/17/20 Calculated Date of Delivery: 03/24/21 Gestational Age Based on Last Menstrual Period: 39 Review of Systems General: Reports: 10 or more systems reviewed and unremarkable except in HPI and below Medications/Allergies Home Medications Medication Instructions Recorded Confirmed Last Taken Type hydrocodone 7.5 mg-acetaminophen 1 tab PO ONCE tab 12/01/20 03/20/21 01/30/21 History 300 mg tablet prenat.vits,natalee,mhp-opbc-lmkpn 1 tab PO DAILY 01/16/21 03/20/21 01/31/21 History Allergies Allergy/AdvReac Type Severity Reaction Status Date / Time No Known Allergies Allergy Verified 03/20/21 11:24 PFSH TECHNICAL OPERATIONS SPECIALIST PFSH: Medical History No pertinent past medical history neghx: htn,dm,thyroid,dvt/pe,herpes Denies past partner hx of herpes PCP: none Surgical History History of appendectomy ~age 16 S/P laparoscopic cholecystectomy Family History Grandmother , unknown what type and how old at dx Cancer Denies family history of Diabetes Hypertension Stroke Social History Smoking and tobacco status: current every day smoker Adopted: No Marital status: Legally Number of children: 3 service: No History of recent travel: No History History History 5 Term 3 Miscarriages/Ectopic 1 0 Living Children 3 Care PASHA Calculator Estimated Delivery Date Method Current WG Current Estimate 04/04/21 LMP (Uncertain) 38w 5d Other Estimates 04/04/21 Ultrasound #1 38w 5d Expected Delivery Route/Plan Specific Issues/Plans * AMA?normal panorama. * Edema * Anemia * Tobacco use Vitals/I&O/Wt Last Vital Signs Temp 98.1 F 03/26/21 10:23 Pulse 96 03/26/21 13:29 Resp 18 03/26/21 13:17 BP 191/87 03/26/21 13:29 Weight last 48 hrs Weight 186 lb Physical Exam Chest: CHEST: Yes Symmetrical chest wall rise Resp: EFFORT & INSPECTION: Yes symmetric chest movement : MANUAL OB EXAM: dilated 4 cm, effaced (90) and station (-3) AMNIOTIC FLUID: clear Data : 03/26/21 10:30 03/26/21 10:30 A&P Assessment and plan (1) Uterine contractions: She appears to be in early labor. She desires an epidural, therefore, anesthesia was notified. Anticipating a spontaneous vaginal delivery. Status: Acute (2) GBS (group B Streptococcus carrier), +RV culture, currently : We will start penicillin 5,000,000 units and will repeat with 3,000,000 un its in 4 hours if she is still . Status: Acute (3) Tobacco use in : Status: Acute Qualifiers: Trimester: first trimester Qualified Code(s): O99.331 - Smoking (tobacco) complicating , first trimester (4) Elderly multigravida: Status: Acute Qualifiers: Trimester: first trimester Qualified Code(s): O09.521 - Supervision of elderly multigravida, first trimester (5) Preeclampsia: No evidence of severe preeclampsia is seen at this time, therefore, no magnesium sulfate is indicated. However, her blood pressures will be watched very closely. Status: Acute Attestations Medical Necessity Statement*: Patient is in labor, and is being admitted for labor and delivery. Coding Level of Care Code Acute Concrete Pipe Machine Operator for Chg Fwd Diagnoses Uterine contractions GBS (group B Streptococcus carrier), +RV culture, currently O99.820 Tobacco use in O99.331 Trimester: first trimester Elderly multigravida O09.521 Trimester: first trimester Preeclampsia O14.90
--- NOTE | 2021-03-26 14:22 | P.ANESASSM_ITS ---
Pre-Anesthetic Assessment Pre-Anesthetic Assessment: Height/Weight: Height 1.65 m Weight 84.368 kg Temp Pulse Resp BP Pulse Ox 98.1 F 104 H 18 126/86 95 03/26/21 10:23 03/26/21 14:19 03/26/21 13:17 03/26/21 14:19 03/26/21 14:17 Preop Diagnosis: iup Was Beta Reji taken within 24 hours: N/A Was Clonidine taken within 24 hours: N/A Social: Social History: Tobacco Exam: Pre-Anes Outpt Exam: alert, oriented x 3, clear to auscultation bilaterally and regular rate & rhythm Airway: Submandibular: WNL Cervical ROM: WNL MP: 2 Dentition: Full History/ROS: No significant history except as noted and No significant complaints Pulmonary: Pulmonary: None reported CV/HEM: Comments: pre-eclapsia : : None reported Hepatic: Hepatic: None reported GI: GI: None reported Metabolic: Metabolic: None reported Musc/skel: Musc/skel: None reported Neuropsych: Neuropsych: None reported Anesthetic Plan: ASA status: 2 Anesthesia: Anesthesia Evaluation and Regional (specify below) Risk of > 500 ml blood loss (7ml/kg in children): No Meds/Allergies Current Medications: Current Medications Generic Name Dose Route Start Last Admin Trade Name Freq PRN Reason Stop Dose Admin Acetaminophen 650 mg 03/26/21 12:27 03/26/21 13:04 Acetaminophen 32 5 Mg Tablet PO 650 mg Q6H PRN Administration Mild pain or temp > 100.4 Fentanyl 25 - 100 mcg 03/26/21 12:27 03/26/21 13:17 Fentanyl 50 Mcg/ Ml Inj 2ml IVP 25 mcg Q1H PRN Administration SEVERE PAIN Lactated Ringer's 1,000 mls @ 999 m ls/hr 03/26/21 12:27 03/26/21 13:06 Lactated Ringers IV 999 mls/hr .Q1H1M PRN Administration Per L&D Rescitati on Protocol [facility] Anesthesia PFSH: Medical History No pertinent past medical history neghx: htn,dm,thyroid,dvt/pe,herpes Denies past partner hx of herpes PCP: none Surgical History History of appendectomy ~age 16 S/P laparoscopic cholecystectomy Family History Grandmother , unknown what type and how old at dx Cancer Denies family history of Diabetes Hypertension Stroke Social History Smoking and tobacco status: current every day smoker Adopted: No Marital status: Legally Number of children: 3 service: No History of recent travel: No Female Reproductive History: Date of last menstrual period: 06/17/20 : 5 Data Anesthesia CBC & Chem 7: 03/26/21 10:30 03/26/21 10:30 Other Labs: Laboratory Results - last 48 hr 03/26/21 03/26/21 03/26/21 10:30 10:30 10:30 WBC 12.8 H RBC 3.62 L Hgb 11.7 Hct 34.7 L MCV 95.9 MCH 32.3 MCHC 33.7 RDW 17.3 H Plt Count 287 MPV 10.4 Neut % (Auto) 77.0 Lymph % (Auto) 17.3 [place] % (Auto) 4.5 Eos % (Auto) 0.5 Baso % (Auto) 0.2 Neut # (Auto) 9.85 H Lymph # (Auto) 2.2 [place] # (Auto) 0.6 Eos # (Auto) 0.1 Baso # (Auto) 0.0 Nucleated RBC % (auto) 0 Nucleated RBCs # 0.0 Sodium 136 Potassium 3.2 L Chloride 103 Carbon Dioxide 21 L Anion Gap 15.2 BUN 4 L Creatinine 0.4 L GFR Calculation 180.6 H Glucose 75 Calculated Osmolality 278 L Uric Acid 4.3 Calcium 8.7 Total Bilirubin 0.3 AST 24 ALT 13 Alkaline Phosphatase 199 H Total Protein 6.0 L Albumin 3.0 L Globulin 3.0 Insulin-like GF I Urine Color Urine Appearance Urine pH Ur Specific [place] Urine Protein Urine Glucose (UA) Urine Ketones Urine Blood Urine Nitrate Urine Bilirubin Urine Urobilinogen Ur Leukocyte Esterase Urine RBC Urine WBC Ur Squamous Epith Cells Amorphous Sediment Urine Bacteria Urine Yeast U Random Total Protein 25 Urine Creatinine 27 L Protein/Creatinin Ratio 0.93 03/26/21 03/26/21 10:30 10:30 WBC RBC Hgb Hct MCV MCH MCHC RDW Plt Count MPV Neut % (Auto) Lymph % (Auto) [place] % (Auto) Eos % (Auto) Baso % (Auto) Neut # (Auto) Lymph # (Auto) [place] # (Auto) Eos # (Auto) Baso # (Auto) Nucleated RBC % (auto) Nucleated RBCs # Sodium Potassium Chloride Carbon Dioxide Anion Gap BUN Creatinine GFR Calculation Glucose Calculated Osmolality Uric Acid Calcium Total Bilirubin AST ALT Alkaline Phosphatase Total Protein Albumin Globulin Insulin-like GF I Positive Urine Color Straw Urine Appearance Clear Urine pH 7 Ur Specific [place] 1.005 Urine Protein Neg Urine Glucose (UA) Norm Urine Ketones Negative Urine Blood 2+ H Urine Nitrate Negative Urine Bilirubin Neg Urine Urobilinogen Norm Ur Leukocyte Esterase Trace H Urine RBC 0-4 H Urine WBC 5-10 H Ur Squamous Epith Cells 10-15 H Amorphous Sediment Not Reportable Urine Bacteria Trace Urine Yeast Trace U Random Total Protein Urine Creatinine Protein/Creatinin Ratio Cardiac Studies: No Data to Display
[2021-03-26] MEDS: penicillin g potassium 5,000,000 UNIT in sodium chloride 0.9% (100 ml) 100 ML 100 UNIT IV (14:23)
--- NOTE | 2021-03-26 14:24 | P.ANES_ITS ---
Anesthesia Procedures Procedure/Date: 03/26/21 Epidural: Time Out Performed: Yes Consents Signed: Procedure Consent Consent: from patient, risks and benefits reviewed and patient agrees to proceed Lumbar Level: L3-L4 Epidural position: sitting Epidural procedure: sterile prep of area, 1% lidocaine to numb the area, 18 g needle, neg for parest hesia, test dose given, 1.5% xylocaine 1:200k epi, 0.2% Ropivacaine bolus ml (4cc and Fentanyl 100mcg), placed PCEA, no systemic response, sterile dressing applied, L.U.D. no apparent complications and 0.2% Ropiavacaine @ mls/hr (13cc/hour)
[2021-03-26] MEDS: oxytocin 30 UNIT/500 ML BAG 999 UNIT IV (16:10)
--- NOTE | 2021-03-26 16:42 | P.PCNOB_ITS ---
Delivery Note: Date of delivery: March 26, 2021 Pre-delivery diagnoses: 1. Intrauterine at 38 weeks and 5 days 2. Spontaneous rupture of membranes with clear fluid 3. Preeclampsia without severe features 4. GBS positive status 5. Smoking in 6. Advanced maternal age Post-delivery diagnoses: Same Procedure: Spontaneous vaginal delivery Op report anesthesia: Epidural Delivering Physician: Amira Mehta DO Estimated blood loss (mL): 100 Findings: Viable female infant weighing 7 pounds. Born at 1609 with Apgars of 9 at 1 minute and 9 at 5 minutes. Pre-Delivery Course: Patient presented to the labor and delivery earlier today with complaints of leaking fluid and mild contractions. She was found to have ruptured membranes. She was found to be in early labor, and she was found to have preeclampsia without severe features. Delivery: Patient presented to the labor and delivery earlier today with complaints of leaking fluid and mild contractions. She was found to have ruptured membranes. She was found to be in early labor, and she was found to have preeclampsia without severe features. As patient's contractions progressed, she requested an epidural which was obtained with great pain relief. She was given penicillin G 5,000,000 units for positive GBS status. There was still a bit of a forebag left which was ruptured when patient's cervix was dilated to 4 cm. After this was done, patient's labor progressed quite rapidly and she was found to be fully dilated with head at +3 station. Patient pushed 3 times, after which head delivered. There was no nuchal cord found and the entire infant delivered without any difficulty. Infant was placed on maternal abdomen and was found to be vigorous immediately. Father of the baby cut the umbilical cord slightly after 1 minute of . was born at 1609 with Apgars of 9 at 1 minute and 9 at 5 minutes. Cord blood was obtained. Placenta delivered spontaneously and was found to be intact. Patient was found to have a first-degree perineal laceration which was repaired using 2-0 Monocryl in a standard fashion. Estimated blood loss was 100 mL. Post-Delivery Status: Stable A&P Assessment and plan (1) Uterine contractions: Status: Acute (2) GBS (group B Streptococcus carrier), +RV culture, currently : Status: Acute (3) Tobacco use in : Status: Acute Qualifiers: Trimester: first trimester Qualified Code(s): O99.331 - Smoking (tobacco) complicating , first trimester (4) Elderly multigravida: Status: Acute Qualifiers: Trimester: first trimester Qualified Code(s): O09.521 - Supervision of elderly multigravida, first trimester (5) Preeclampsia: Status: Acute Coding Level of Care Code Acute Petroleum Production Engineer for Chg Fwd Diagnoses Uterine contractions GBS (group B Streptococcus carrier), +RV culture, currently O99.820 Tobacco use in O99.331 Trimester: first trimester Elderly multigravida O09.521 Trimester: first trimester Preeclampsia O14.90
[2021-03-26] MEDS: benzocaine-menthol 78 gm Canister 1 SPRAY TOPICAL (18:27)
[2021-03-26] MEDS: guaiFENesin 100 mg/5 mL UDC 10 mL 400 MG PO ×2 (18:39→23:01)
[2021-03-26] MEDS: ibuprofen 800 mg tablet PO (21:02)
[2021-03-27] VITALS (11 sets, daily range): BP systolic 136–159; BP diastolic 88–92; PULSE 81–101; RESP 18; TEMP 35.8–36.4
[2021-03-27] MEDS: HYDROcodone-acetaminophen 5-325 mg Tablet PO ×3 (00:32→13:57)
[2021-03-27] MEDS: guaiFENesin 100 mg/5 mL UDC 10 mL 400 MG PO ×2 (03:04→11:24)
[2021-03-27 05:58] LABS: Hemoglobin 10.7 g/dL (11.5-15.3); Mean Corpuscular HGB Conc 33.4 g/dL (30.0-36.0); Mean Corpuscular Hemoglobin 32.3 pg (28.0-34.0); Mean Corpuscular Volume 96.7 fl (81-99); Mean Platelet Volume 10.1 fL (7.4-10.4); Platelet Count 299 10^3/cmm (130-400); Red Blood Count 3.31 10^6/uL (4.1-5.3); Red Cell Distribution Width 17.3 % (12.1-15.1); White Blood Count 15.4 10^3/uL (4.0-10.0)
--- NOTE | 2021-03-27 07:30 | ANE.PACU2 ---
Inpatient post-anesthesia follow up: Airway intact: Yes Vital signs: Temperature 96.7 F Pulse Rate 96 Respiratory Rate 18 Blood Pressure 140/88 Pulse Oximetry 96 Oxygen Delivery Me thod Room Air Oxygen Flow Rate Fraction of Inspir ed Oxygen Hydration adequate: Yes Nausea and vomiting: No Pain level: 1 Mental status: Baseline
[2021-03-27] MEDS: ibuprofen 800 mg tablet PO ×2 (09:38→14:56)
[2021-03-27] MEDS: prenatal vitamin Capsule 1 CAP PO (09:38)
--- NOTE | 2021-03-27 10:21 | PM.OBGYPN ---
HAND PRESSER Subjective Subjective: Interval history: 35-year-old 3 now para 2 who is day #1 from a spontaneous vaginal delivery. She is doing very well and has no complaints. Preeclampsia review of systems was negative. She states her vaginal bleeding is very minimal. She is requesting to be discharged home today as she has other children to care of knowing that the baby needs to stay in the hospital for at least 48 hours due to positive GBS status. She states that her current partner and herself will be staying with the baby, however, she would like to be able to go home to check on her other children. Post /CS: Patient comments OB post-: no complaints, pain well controlled and tolerating diet [place] baby status: doing well and bottle feeding well [place] feeding status: exclusively bottle feeding Vitals/I&O/Wt Last Vital Signs Temp 97.5 F L 03/27/21 09:39 Pulse 89 03/27/21 09:40 Resp 18 03/27/21 09:48 BP 138/90 03/27/21 09:40 Pulse Ox 96 03/26/21 14:32 03/26/21 03/27/21 03/27/21 22:59 06:59 14:59 Intake Total 200.9 / 1100.00 Output Total 650 / 650 Balance -449.1 / 450.00 Weight last 48 hrs Weight 186 lb Physical Exam Const: COMMON NORMALS: no acute distress and patient oriented x3 Chest: CHEST: Yes Symmetrical chest wall rise Resp: EFFORT & INSPECTION: Yes symmetric chest movement : UTERUS PALPATION: Yes Other OB uterine findings (Uterus is firm slightly below umbilicus) Neuro: COMMON NORMALS: patient oriented x3 Data : 03/27/21 05:47 03/26/21 10:30 A&P Assessment and plan (1) (spontaneous vaginal delivery): Patient is stable for discharge today. See discharge summary. Status: Acute (2) Preeclampsia: Patient had preeclampsia without severe features antepartum. I would like for her to follow-up with her OB in 1 week for a blood pressure check. She was given preeclampsia signs and symptoms precautions. Status: Acute (3) GBS (group B Streptococcus carrier), +RV culture, currently : Status: Acute (4) Tobacco use in : Smoking cessation was once again discussed with the patient. Status: Acute Qualifiers: Trimester: first trimester Qualified Code(s): O99.331 - Smoking (tobacco) complicating , first trimester (5) Elderly multigravida: Status: Acute Qualifiers: Trimester: first trimester Qualified Code(s): O09.521 - Supervision of elderly multigravida, first trimester Attestations Medical Necessity Statement*: Patient was admitted for labor and delivery. Coding Level of Care Code Acute Specimen Processor for Chg Fwd Diagnoses (spontaneous vaginal delivery) O80 Preeclampsia O14.90 GBS (group B Streptococcus carrier), +RV culture, currently O99.820 Tobacco use in O99.331 Trimester: first trimester Elderly multigravida O09.521 Trimester: first trimester
--- NOTE | 2021-03-27 10:38 | PM.OBGYDC ---
Discharge Providers BIOCHEMISTRY SPECIALIST Date of Admission: 03/26/21 12:30 Date of Discharge: 03/27/21 Attending Provider at Admission: Amira Mehta DO Attending Provider at Discharge: Amira Mehta DO Primary Care Provider: Leisa Wray MD Diagnoses at Discharge Discharge Diagnosis (1) (spontaneous vaginal delivery): Status: Acute (2) Preeclampsia: Status: Acute (3) GBS (group B Streptococcus carrier), +RV culture, currently : Status: Acute (4) Tobacco use in : Status: Acute Qualifiers: Trimester: first trimester Qualified Code(s): O99.331 - Smoking (tobacco) complicating , first trimester (5) Elderly multigravida: Status: Acute Qualifiers: Trimester: first trimester Qualified Code(s): O09.521 - Supervision of elderly multigravida, first trimester Reason for Visit Reason for Visit: Contractions Hospital Course Hospital Course Patient presented to the labor and delivery earlier today with complaints of leaking fluid and mild contractions. She was found to have ruptured membranes. She was found to be in early labor, and she was found to have preeclampsia without severe features. As patient's contractions progressed, she requested an epidural which was obtained with great pain relief. She was given penicillin G 5,000,000 units for positive GBS status. There was still a bit of a forebag left which was ruptured when patient's cervix was dilated to 4 cm. After this was done, patient's labor progressed quite rapidly and she was found to be fully dilated with head at +3 station. Patient pushed 3 times, after which head delivered. There was no nuchal cord found and the entire infant delivered without any difficulty. was placed on maternal abdomen and was found to be vigorous immediately. Father of the baby cut the umbilical cord slightly after 1 minute of . Infant was born at 1609 with Apgars of 9 at 1 minute and 9 at 5 minutes. Cord blood was obtained. Placenta delivered spontaneously and was found to be intact. Patient was found to have a first-degree perineal laceration which was repaired using 2-0 Monocryl in a standard fashion. Estimated blood loss was 100 mL. On day #1, she is doing very well. She denies having any preeclampsia signs or symptoms. Her vaginal bleeding is very scant. She is requesting to be discharged home today, knowing, that the baby needs to stay for at least 48 hours due to positive GBS status. Information Peripartum Data: Infant Delivery Method: Vaginal Physical Exam Const: COMMON NORMALS: no acute distress GENERAL APPEARANCE: cooperative Chest: CHEST: Yes Symmetrical chest wall rise : UTERUS PALPATION: Yes Other OB uterine findings (Uterus is firm slightly below the umbilicus) Discharge Data Data Completed and Pending: Labs from last 24 hours 03/27/21 03/26/21 03/26/21 05:47 10:30 10:30 WBC 15.4 H RBC 3.31 L Hgb 10.7 L Hct 32.0 L MCV 96.7 MCH 32.3 MCHC 33.4 RDW 17.3 H Plt Count 299 MPV 10.1 Neut % (Auto) Lymph % (Auto) [place] % (Auto) Eos % (Auto) Baso % (Auto) Neut # (Auto) Lymph # (Auto) [place] # (Auto) Eos # (Auto) Baso # (Auto) Nucleated RBC % (a uto) Nucleated RBCs # Sodium Potassium Chloride Carbon Dioxide Anion Gap BUN Creatinine GFR Calculation Glucose Calculated Osmolal ity Uric Acid Calcium Total Bilirubin AST ALT Alkaline Phosphata se Total Protein Albumin Globulin Insulin-like GF I Positive Urine Color Straw Urine Appearance Clear Urine pH 7 Ur Specific [place] 1.005 Urine Protein Neg Urine Glucose (UA) Norm Urine Ketones Negative Urine Blood 2+ H Urine Nitrate Negative Urine Bilirubin Neg Urine Urobilinogen Norm Ur Leukocyte [place] a[place] Trace H Urine RBC 0-4 H Urine WBC 5-10 H Ur Squamous Epith Cells 10-15 H Amorphous Sediment Not Reportable Urine Bacteria Trace Urine Yeast Trace U Random Total Pro tein Urine Creatinine Protein/Creatinin Ratio 03/26/21 03/26/21 03/26/21 10:30 10:30 10:30 WBC 12.8 H RBC 3.62 L Hgb 11.7 Hct 34.7 L MCV 95.9 MCH 32.3 MCHC 33.7 RDW 17.3 H Plt Count 287 MPV 10.4 Neut % (Auto) 77.0 Lymph % (Auto) 17.3 [place] % (Auto) 4.5 Eos % (Auto) 0.5 Baso % (Auto) 0.2 Neut # (Auto) 9.85 H Lymph # (Auto) 2.2 [place] # (Auto) 0.6 Eos # (Auto) 0.1 Baso # (Auto) 0.0 Nucleated RBC % (a uto) 0 Nucleated RBCs # 0.0 Sodium 136 Potassium 3.2 L Chloride 103 Carbon Dioxide 21 L Anion Gap 15.2 BUN 4 L Creatinine 0.4 L GFR Calculation 180.6 H Glucose 75 Calculated Osmolal ity 278 L Uric Acid 4.3 Calcium 8.7 Total Bilirubin 0.3 AST 24 ALT 13 Alkaline Phosphata se 199 H Total Protein 6.0 L Albumin 3.0 L Globulin 3.0 Insulin-like GF I Urine Color Urine Appearance Urine pH Ur Specific [place] y Urine Protein Urine Glucose (UA) Urine Ketones Urine Blood Urine Nitrate Urine Bilirubin Urine Urobilinogen Ur Leukocyte Myrtle ase Urine RBC Urine WBC Ur Squamous Epith Cells Amorphous Sediment Urine Bacteria Urine Yeast U Random Total Pro tein 25 Urine Creatinine 27 L Protein/Creatinin Ratio 0.93 Vitals: Last Vital Signs Temp 97.5 F L 03/27/21 09:39 Pulse 89 03/27/21 09:40 Resp 18 03/27/21 09:48 BP 138/90 03/27/21 09:40 Pulse Ox 96 03/26/21 14:32 Discharge Plan Discharge Condition: Stable Prescriptions: New ibuprofen 800 mg Tablet 800 mg PO TID Qty: 40 RF: 0 Continued prenat.vits,natalee,fvm-momw-vjfdn Tablet 1 tab PO DAILY Qty: 0 RF: 0 Discontinued hydrocodone-acetaminophen 7.5-300 mg tablet 1 tab PO ONCE RF: 0 Discharge Orders: Discharge Order (Routine); Ordered 03/27/21 Ordered By: Amira Mehta Discharge Diet: Advance as tolerated Patient Instructions: Opioid Safety Activity Restrictions/Additional Instructions: Pelvid rest for 6 weeks. Follow up with primary OB in 1 week for blood pressure check. Preeclampsia precautions please. Discharge Attestations BIOCHEMISTRY SPECIALIST Time Spent in Discharge Care*: greater than 30 min Specific Discharge Activities: Specific discharge activities: educating patient, documenting/other paperwork and evaluating patient/reviewing data Time Spent in Smoking Cessation: Time spent discussing smoking cessation with patient: more than 10 minutes Coding Level of Care Code Acute Vice President Industrial Relations for g Fwd Diagnoses (spontaneous vaginal delivery) O80 Preeclampsia O14.90 GBS (group B Streptococcus carrier), +RV culture, currently O99.820 Tobacco use in O99.331 Trimester: first trimester Elderly multigravida O09.521 Trimester: first trimester
--- NOTE | 2021-03-27 17:25 | PC.NURSE ---
mom discharged to room in with baby at this time
--- NOTE | 2021-03-27 18:24 | PC.RESP ---
SMOKING CESSATION INFORMATION SENT TO PATIENT.
== END 2021-03-27 17:25 | disposition home or self-care (01) | DRG 807 ==
LOC: OPOB 14:06 → OBGYN 14:06
PROVIDERS: Admitting Provider Obstetrics & Gynecology; PCP Obstetrics & Gynecology; Visit Provider Obstetrics & Gynecology
DX: O14.93 Unspecified pre-eclampsia, third trimester (principal); Z37.0 Single live birth; O99.824 Streptococcus B carrier state complicating childbirth; O99.333 Smoking (tobacco) complicating pregnancy, third trimester; F17.210 Nicotine dependence, cigarettes, uncomplicated; O70.0 First degree perineal laceration during delivery; Z3A.38 38 weeks gestation of pregnancy; Z90.49 Acquired absence of other specified parts of digestive tract; Z80.9 Family history of malignant neoplasm, unspecified
CPT/HCPCS: 36415; 51702; 59025; 59409; 80053; 81001; 82570; 83986; 84112; 84156; 84550; 85025; 85027; 99211; J2540; J2795; J3010

== ENCOUNTER → 2022-01-22 16:09 | Outpatient (BNVA) | payer BC, MEDICAID, SELFPAY | PROVIDERS: PCP Obstetrics & Gynecology; Visit Provider Obstetrics & Gynecology | DX: Z01.419 Encounter for gynecological examination (general) (routine) without abnormal findings (principal) | CPT/HCPCS: 87624 ==

== ENCOUNTER → 2023-02-14 11:55 | Outpatient (BNVA) | payer BC, MEDICAID, SELFPAY | PROVIDERS: PCP Obstetrics & Gynecology; Visit Provider Obstetrics & Gynecology | DX: Z30.9 Encounter for contraceptive management, unspecified (principal) | CPT/HCPCS: 81025 ==

== ENCOUNTER → 2024-05-15 14:16 | Outpatient (BNVA) | payer BC, MEDICAID, SELFPAY | PROVIDERS: PCP Obstetrics & Gynecology; Visit Provider Nurse Practitioner Women's Health | DX: Z30.42 Encounter for surveillance of injectable contraceptive (principal) | CPT/HCPCS: 81025 ==

== ENCOUNTER 2024-09-23 19:53 | Emergency (ER) | payer BC, MEDICAID, SELFPAY ==
[2024-09-23 19:56] VITALS: BP 118/84; PULSE 108; RESP 17; TEMP 36.4; O2SAT 99; BMI 28.3
--- NOTE | 2024-09-23 20:23 | XRR_ITS ---
PROCEDURE INFORMATION: Exam: XR Left Shoulder Exam date and time: 09/23/2024 8:48 PM Age: 39 years old Clinical indication: Injury or trauma; Fall; Blunt trauma (contusions or hematomas); Shoulder; Left TECHNIQUE: Imaging protocol: Radiologic exam of the left shoulder. Views: 2 or more views. COMPARISON: CR XR chest 1V [id number] 06/25/2018 3:54 PM FINDINGS: Bones/joints: Normal. Soft tissues: Normal. XR/XR shoulder LT min 2V* [id number] IMPRESSION: No acute findings.
--- NOTE | 2024-09-23 20:23 | XRR_ITS ---
PROCEDURE INFORMATION: Exam: XR Lumbosacral Spine Exam date and time: 09/23/2024 8:52 PM Age: 39 years old Clinical indication: Injury or trauma; Fall; Blunt trauma (contusions or hematomas) TECHNIQUE: Imaging protocol: Radiologic exam of the lumbosacral spine. Views: 2 or 3 views. COMPARISON: No relevant prior studies available. FINDINGS: Bones/joints: No acute compression deformity or traumatic subluxation within lumbar spine. Mild multilevel degenerative change. Vertebral body heights and intervertebral disc spaces are relatively well-maintained. Soft tissues: Unremarkable. Surgical clips project over right upper quadrant. XR/XR lumbar spine 2-3V* [id number] IMPRESSION: No acute compression deformity or traumatic subluxation within lumbar spine.
--- NOTE | 2024-09-23 20:42 | ED_ITS ---
HPI - Fall General: Chief Complaint: Fall Stated Complaint: fall left shoulder, back , legs injured Time Seen by Provider: 09/23/24 20:24 Source: patient Mode of arrival: ambulatory Limitations: no limitations History of Present Illness: 39-year-old female states she tripped an d fell 2 days ago in the mud she states that she had landed on her shoulder and back she been having left shoulder along with lower back pain since then. The pain has gradually worsened over the last 2 days. She denies hitting her head denies any neck pain denies any bowel or bladder incontinence. Associated symptoms-after fall: Denies abdominal pain, chest pain, headache(s) or neck pain Related Data Previous Rx's ?Medication ?Instructions ?Recorded medroxyprogesterone 150 mg/mL See Rx Instructions .Rou te 01/13/24 intramuscular syringe .COMPLEX #1 mL sulfamethoxazole 800 1 tab PO BID 10 days #20 tab s 07/01/24 mg-trimethoprim 160 mg tablet (Bactrim DS) methocarbamol 750 mg tablet 750 mg PO Q6H PRN spasms # 20 tabs 09/23/24 naproxen 500 mg tablet (Naprosyn) 500 mg PO BID PRN pa in #20 tabs 09/23/24 Allergies Allergy/AdvReac Type Severity Reaction Status Date / Time tramadol Allergy ALGY-Hives Verified 09/23/24 19:59 Review of Systems Const: Denies: fever(s), chills, body aches or change in appetite ENMT: Denies: throat pain or dental pain Card: Denies: chest pain Resp: Denies: dyspnea GI: Denies: abdominal pain, nausea, vomiting or diarrhea Musc: Reports: back pain and extremity pain; Denies: neck pain Skin/Breast: Denies: rash Neuro: Denies: headache(s) Psych: Denies: depression PFSH ED PFSH: Medical History Dental caries associated with enamel hypomineralization No pertinent past medical history neghx: htn,dm,thyroid,dvt/pe,herpes Denies past partner hx of herpes PCP: none Surgical History S/P laparoscopic cholecystectomy History of appendectomy ~age 16 Family History Grandmother , unknown what type and how old at dx Cancer Denies family history of Diabetes Hypertension Stroke Social History Smoking and tobacco/nicotine status: current every day tobacco/nicotine user Substance/Drug Use: never Physical Exam 2 Const: COMMON NORMALS: no acute distress, patient oriented x3 and healthy appearing HENMT: COMMON NORMALS: normocephalic and atraumatic HEAD & SCALP: normocephalic and atraumatic Eye: COMMON NORMALS: conjunctivae normal CONJUNCTIVA: Yes conjunctivae normal Neck/C-Spine: COMMON NORMALS: full ROM and supple CERVICAL SPINE: Yes cervical ROM normal and No Cervical spine tenderness Chest: COMMONS NORMALS: normal inspection of the chest and normal palpation of entire chest wall Resp: COMMON NORMALS: normal respiratory effort Cardio: COMMON NORMALS: regular rate RATE: regular rate Back/Pelvis: OTHER: Tenderness paraspinal and lower back no midline tenderness Extremity: COMMON NORMALS: full ROM NARRATIVE EXTREMITY EXAM: Slight tenderness over left shoulder no obvious deformity has full range of motion Neuro: COMMON NORMALS: patient oriented x3, moves all extremities and no focal motor deficits Psych: COMMON NORMALS: mental status grossly normal, Normal thought process present and cooperative THOUGHT PROCESS: Normal thought process present Skin: COMMON NORMALS: no rashes or lesions noted and no wounds GENERAL SKIN EXAM: no rashes or lesions noted Course Vital Signs: Vital signs: Vital Signs Temperature 97.5 F L 09/23/24 19:56 Pulse Rate 108 H 09/23/24 19:56 Respiratory Rate 17 09/23/24 19:56 Blood Pressure 118/84 09/23/24 19:56 Pulse Oximetry 99 09/23/24 19:56 Oxygen Delivery Me thod Room Air 09/23/24 19:56 MDM - Fall Medical Decision Making Patient presents for lumbar and shoulder sprain from a fall fractures dislocation seen on x-ray she is to follow-up with orthopedics return if worsening she understands agrees to plan Medical Records I reviewed the patient's medical records. XR interpretation done by ED provider, pending radiology final review ED provider radiology interpretation(s): X-ray lumbar spine no acute fracture x-ray left shoulder no acute fracture or dislocation Discharge Plan Discharge Patient Disposition: Home Clinical Impression: Fall, Left shoulder strain, Lumbar strain Condition: Stable Prescriptions: New methocarbamol 750 mg tablet 750 mg PO Q6H PRN (Reason: spasms) Qty: 20 0RF naproxen [Naprosyn] 500 mg tablet 500 mg PO BID PRN (Reason: pain) Qty: 20 0RF No Action sulfamethoxazole-trimethoprim [Bactrim DS] 800-160 mg tablet 1 tab PO BID 10 Days Qty: 20 0RF medroxyprogesterone 150 mg/mL syringe See Rx Instructions .ROUTE .COMPLEX Qty: 1 3RF Dose Instruction: ADMINISTER 1 ML IN THE MUSCLE EVERY 90 DAYS Rx Instructions: ADMINISTER 1 ML IN THE MUSCLE EVERY 90 DAYS Discharge Orders: Discharge ED (Routine); Ordered 09/23/24 Ordered By: Soraya Bolivar Referrals: Leisa Wray MD [Primary Care Provider] - Dutch Santillan DO [Physician] - 4-7 days Discharge Diet: Advance as tolerated Discharge Activity: Resume usual activity Patient Instructions: Low Back Strain (ED), Shoulder Pain (ED) Print Language: Latvian Coding Level of Care Code ED [employer] Chief for Peter Shirley
[2024-09-23 21:33] VITALS: BP 130/77; PULSE 99; RESP 16; O2SAT 98
--- NOTE | 2024-09-24 07:05 | DCPLANNER ---
messaged ortho for er f/u
== END 2024-09-23 21:24 | disposition home or self-care (01) ==
PROVIDERS: Emergency Provider Emergency Medicine; PCP Obstetrics & Gynecology
DX: S46.912A Strain of unspecified muscle, fascia and tendon at shoulder and upper arm level, left arm, initial encounter (principal); S39.012A Strain of muscle, fascia and tendon of lower back, initial encounter; Z72.0 Tobacco use; W19.XXXA Unspecified fall, initial encounter
CPT/HCPCS: 72100; 73030; 99284

== ENCOUNTER 2024-09-24 21:56 | Emergency (ER) | payer BC, MEDICAID, SELFPAY ==
[2024-09-24 21:58] VITALS: BP 125/80; PULSE 106; TEMP 36.6; O2SAT 98; BMI 29.1
--- NOTE | 2024-09-24 22:06 | W.ED.BACK ---
HPI - Back Pain/Injury General: Chief Complaint: Back Pain/Injury Stated Complaint: Back Pain Time Seen by Provider: 09/24/24 22:05 History of Present Illness: 39-year-old female comes in today with complaints of low back pain. Patient states that 3 days ago she had slipped and fell on her butt and since then she has had low back discomfort. Patient appears nontoxic. Patient appears no acute distress. Patient was seen yesterday and had x-rays of her lower back done. Review of those x-rays noted no acute fractures or abnormalities. Patient was placed on naproxen and methocarbamol. Related Data Previous Rx's ?Medication ?Instructions ?Recorded medroxyprogesterone 150 mg/mL See Rx Instructions .Route 01/13/24 intramuscular syringe .COMPLEX #1 mL sulfamethoxazole 800 1 tab PO BID 10 days #20 tabs 07/01/24 mg-trimethoprim 160 mg tablet (Bactrim DS) methocarbamol 750 mg tablet 750 mg PO Q6H PRN spasms #20 tabs 09/23/24 naproxen 500 mg tablet (Naprosyn) 500 mg PO BID PRN pain #20 tabs 09/23/24 prednisone 20 mg tablet 20 mg PO BID 5 days #10 tabs 09/24/24 Allergies Allergy/AdvReac Type Severity Reaction Status Date / Time ketorolac (From Toradol) Allergy Unknown Verified 09/24/24 22:03 tramadol Allergy ALGY-Hives Verified 09/24/24 22:03 Review of Systems General: Reports: 10 or more systems reviewed and unremarkable except in HPI and below Musc: Reports: back pain PFSH ED PFSH: Medical History Dental caries associated with enamel hypomineralization No pertinent past medical history neghx: htn,dm,thyroid,dvt/pe,herpes Denies past partner hx of herpes PCP: none Surgical History S/P laparoscopic cholecystectomy History of appendectomy ~age 16 Family History Grandmother , unknown what type and how old at dx Cancer Denies family history of Diabetes Hypertension Stroke Social History Smoking and tobacco/nicotine status: current every day tobacco/nicotine user Substance/Drug Use: never Physical Exam Const: COMMON NORMALS: alert HENMT: COMMON NORMALS: normocephalic HEAD & SCALP: normocephalic Neck/C-Spine: COMMON NORMALS: full ROM Resp: COMMON NORMALS: normal respiratory effort Cardio: COMMON NORMALS: regular rate RATE: regular rate Back/Pelvis: COMMON NORMALS: thoracic and lumbar spine normal to inspection Extremity: COMMON NORMALS: full ROM Neuro: SENSORIUM/ORIENTATION: Yes alert Skin: COMMON NORMALS: turgor normal GENERAL SKIN EXAM: turgor normal Course Vital Signs: Vital signs: Vital Signs Temperature 97.9 F 09/24/24 21:58 Pulse Rate 106 H 09/24/24 21:58 Blood Pressure 125/80 09/24/24 21:58 Pulse Oximetry 98 09/24/24 21:58 Oxygen Delivery Me thod Room Air 09/24/24 21:58 MDM - Back Pain/Injury Medical Decision Making 39-year-old female comes in today for complaints of persistent back pain. On exam patient has some muscle tenderness and some tenderness to the lower lumbar spine. Review of the records from yesterday noting an x-ray noted no acute fractures. Differential diagnosis includes intervertebral disc disease, facet arthritis, lumbar strain. Suspect may be some intervertebral disc disease. Patient will be started on steroids to help with inflammation of the disc and along the nerve pathway. Patient should continue with naproxen and methocarbamol if otherwise. Patient was given a 10 mg dose of dexamethasone and 60 mg of orphenadrine in the emergency department. Patient was then prescribed prednisone 20 mg twice a day for the next 5 days. Patient reported understanding of care plan and need for follow-up or return to the ER. No radiology studies performed this visit Discharge Plan Discharge Patient Disposition: Home Clinical Impression: Low back pain Qualifiers: Chronicity: acute Back pain laterality: right Sciatica presence: without sciatica Qualified Code(s): M54.50 - Low back pain, unspecified Condition: Stable Prescriptions: New prednisone 20 mg tablet 20 mg PO BID 5 Days Qty: 10 0RF No Action sulfamethoxazole-trimethoprim [Bactrim DS] 800-160 mg tablet 1 tab PO BID 10 Days Qty: 20 0RF medroxyprogesterone 150 mg/mL syringe See Rx Instructions .ROUTE .COMPLEX Qty: 1 3RF Dose Instruction: ADMINISTER 1 ML IN THE MUSCLE EVERY 90 DAYS Rx Instructions: ADMINISTER 1 ML IN THE MUSCLE EVERY 90 DAYS methocarbamol 750 mg tablet 750 mg PO Q6H PRN (Reason: spasms) Qty: 20 0RF naproxen [Naprosyn] 500 mg tablet 500 mg PO BID PRN (Reason: pain) Qty: 20 0RF Discharge Orders: Discharge ED (Routine); Ordered 09/24/24 Ordered By: Demond Cooper Referrals: Leisa Wray MD [Primary Care Provider] - Discharge Diet: Usual diet Discharge Activity: Increase activity as tolerated Patient Instructions: Back Pain (ED) Activity Restrictions/Additional Instructions: Continue with medications as directed. Add prednisone 20 mg twice daily for the next 5 days to help with further inflammation and control of pain. Continue with naproxen and muscle relaxer for further pain relief. You may also use Tylenol ice and heat. Follow-up with primary care for further instructions. Print Language: Japanese Coding Level of Care Code ED [employer] Adjuster for Peter Shirley
== END 2024-09-24 22:57 | disposition home or self-care (01) ==
PROVIDERS: Emergency Provider Nurse Practitioner Family; PCP Obstetrics & Gynecology
DX: M54.50 Low back pain, unspecified (principal); Z72.0 Tobacco use
CPT/HCPCS: 99283

== ENCOUNTER → 2024-10-08 15:09 | Outpatient (BNVA) | payer BC, MEDICAID, SELFPAY | PROVIDERS: PCP Obstetrics & Gynecology; Visit Provider Orthopaedic Surgery | DX: M54.9 Dorsalgia, unspecified (principal) | CPT/HCPCS: 72110 ==